=== PATIENT | male | born 1970 | race Caucasian/White ===

== ENCOUNTER 2018-12-16 03:22 | Emergency (ER) | payer MEDICAID, OTHER ==
[~2018-12-16] VITALS: Ht 160 cm; Wt 80.5 kg
[2018-12-16 03:35] VITALS: BP 182/114
--- NOTE | 2018-12-16 04:02 | ED General ---
General Chief Complaint: Abdominal/GI Problems Stated Complaint: VOMITING,HAS NOT HAD DIALYSIS IN A WEEK,POSS FEVER Nursing Triage Note: N/V X1HR, NO HD X1 WEEK. CHEST PRESSURE Nursing Sepsis Screen: No Definite Risk Source of Information: Patient, Family Exam Limitations: No Limitations History of Present Illness Date Seen by Provider: Dec 16, 2018 Time Seen by Provider: 03:41 Initial Comments Here with report of no dialysis over the last week with some nausea and vomiting and complained of some chest discomfort. He is requesting dialysis. He is from [place]. He was last at [facility] last week for dialysis and was supposed to have that set up with [facility] but it has not been set up for chair time yet. We did discuss that we don't have dialysis available here which they were not aware of. Timing/Duration: 1 Hour Severity: Mild Associated Systoms: Chest Pain; No Fever/Chills; Nausea/Vomiting; No Shortness of Air; Other (weight gain) Allergies and Home Medications Patient Home Medication List Home Medication List Reviewed: No Review of Systems Review of Systems Constitutional: see HPI Past Pgdqukz-Nyiydd-Ykzslt Hx Patient Social History Alcohol Use: Denies Use Recreational Drug Use: No Smoking Status: Never a Smoker 2nd Hand Smoke Exposure: No Recent Foreign Travel: No Contact w/Someone Who Travel: No Recent Infectious Disease Expo: No Recent Hopitalizations: Yes ( 12[facility]09/18 [facility] Physical Abuse: No Sexual Abuse: No Mistreated: No Fear: No Immunizations Up To Date Tetanus Booster (TDap): Unknown Seasonal Allergies Seasonal Allergies: No Past Medical History Surgeries: Yes (FISTULA) Respiratory: No Cardiac: Yes Heart Attack Neurological: No Genitourinary: Yes Renal Failure Gastrointestinal: No Musculoskeletal: No Endocrine: No HEENT: No Cancer: No Psychosocial: No Integumentary: No Blood Disorders: No Physical Exam Vital Signs Vital Signs - First Documented 12/16/18 03:35 Temp 35.8 Pulse 102 Resp 18 B/P (MAP) 182/114 (136) Pulse Ox 94 O2 Delivery Room Air Capillary Refill : Less Than 3 Seconds Height, Weight, BMI Height: '" Weight: lbs. oz. kg; 31.00 BMI Method: General Appearance: No Apparent Distress Progress/Results/Core Measures Suspected Sepsis Recent Fever Within 48 Hours: No Infection Criteria Present: None New/Unexplained Altered Menta: No Sepsis Screen: No Definite Risk SIRS Temperature: Pulse: 102 Respiratory Rate: 18 Blood Pressure 182 /114 Mean: 136 Results/Orders Vital Signs/I&O 12/16/18 03:35 Temp 35.8 Pulse 102 Resp 18 B/P (MAP) 182/114 (136) Pulse Ox 94 O2 Delivery Room Air Capillary Refill : Less Than 3 Seconds Blood Pressure Mean: 136 Progress Note : Progress Note After initiating contact and history and reviewing vital signs, we were discussing dialysis. Patient and were not aware that we did not have dialysis here. They did not want to stay because they wanted to go ahead and get to a center with dialysis. I did offer further evaluation and transfer and stated that she could get him there much quicker she just wanted to go ahead and go. Patient agreed. Her argument is correct. I did state that I was limited because I I would need to do evaluation further to determine his needs. They have opted to go ahead and leave and go directly to [facility] in [place] where he has his records and has been seen before. I did again offer services and evaluation and stabilization treatment if needed and any other therapy as indicated but they declined further evaluation and left. AMA form signed. Left prior to discharge paperwork. Instructed to return for any concerns. Departure Impression Primary Impression: End stage renal disease on dialysis Disposition: 07 AGAINST MEDICAL ADVICE Condition: Against Medical Advice Departure-Patient Inst. Decision time for Depature: 03:44 Referrals: NO,LOCAL PHYSICIAN (PCP/Family) Primary Care Physician Patient Instructions: Leaving Against Medical Advice KENN HUSSEIN MD Dec 16, 2018 04:02
== END 2018-12-16 03:44 | disposition left against medical advice (07) ==
LOC: ER 03:26
DX: N18.6 End stage renal disease (principal); I25.2 Old myocardial infarction; Z99.2 Dependence on renal dialysis
CPT/HCPCS: 99282